=== PATIENT | male | born 1960 | race Caucasian/White ===

== ENCOUNTER 2016-08-08 07:37 | Emergency (ER) | payer MEDICARE ==
--- NOTE | 2016-08-08 08:13 | EDM.PDOC ---
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 The patient states that he always has hard stools and that is nothing new and he has in the past seen some blood in his stools but it has not been consistent. This morning he had a bowel movement and saw blood with it and then had some more bright red blood in the toilet bowl but he has not been needing to use a pad due to dripping of blood or leaking of blood. He states he has pain in the perirectal area and also tells me he has a history of prostate issues for which she is being followed for. He denies any abdominal pain vomiting fevers chills chest pain or shortness of breath. I am familiar with this patient as I saw him back in December 2014 when he presented with abdominal and rectal pain at that time for which I worked him up and he also had presented with delusional statements and was transferred to [facility] and my not. He states that he was evaluated there and was told that this was his baseline and on my evaluation here today he does make several odd statements but it appears that this is his baseline and he is not actively suicidal or confrontational. He states that he follows with Dr. Abundio Perez at [facility] and he has never had issues with rectal bleeding before hence is concerned. Review of systems: As per history of present illness and below otherwise all systems reviewed and negative. Past medical history: As per history of present illness and as reviewed below otherwise noncontributory. Surgical history: As per history of present illness and as reviewed below otherwise noncontributory. Social history: No reported history of drug or alcohol abuse. Family history: As per history of present illness and as reviewed below otherwise noncontributory. Physical exam: Gen.: Well-developed well-nourished man who is nontoxic and interactive with me and cooperative. Vital signs reviewed. Patient is speaking clearly and easily and has no smell of alcohol on his breath HEENT: Atraumatic, normocephalic, pupils reactive, negative for conjunctival pallor or scleral icterus, mucous membranes moist, throat clear, neck supple, nontender, trachea midline. Lungs: Clear to auscultation, breath sounds equal bilaterally, chest nontender. Heart: S1S2, regular rate and rhythm no murmurs Abdomen: Soft, nondistended, nontender. Negative for masses or hepatosplenomegaly. Negative for costovertebral tenderness. Pelvis: Stable nontender. Genitourinary: Deferred. Rectal: tone is normal and there are no overt masses appreciated on digital exam. There are several small external hemorrhoids which are soft and mildly tender on palpation. There is brown stool in the vault which is Hemoccult positive. There was no fullness appreciated and no tenderness on digital exam Extremities: Atraumatic, with chronic visible contracture of the right upper extremity and bilateral AKA's. Neurovascular unremarkable. Neuro: Awake, alert, oriented. Cranial nerves II through XII unremarkable. Cerebellum unremarkable. Motor and sensory unremarkable throughout. Exam nonfocal. Diagnostics: CBC CMP Therapeutics: I discussed with the patient that if his blood tests were normal in light of his presentation and his exam that he would need to follow-up with his provider and potentially have a colonoscopy for further evaluation. He states understanding of this. Impression: Rectal bleeding stable Definitive disposition and diagnosis as appropriate pending reevaluation and review of above. Rectal Pain Score (Numeric/FACES): 7 - Related Data Allergies Allergy/AdvReac Type Severity Reaction Status Date / Time No Known Allergies Allergy Verified 08/08/16 07:49 Home Meds: Home Meds Tamsulosin [Flomax] 0.4 mg PO DAILY 07/16/13 [History] Levothyroxine 08/08/16 [History] Past Medical History - Past Health History Medical/Surgical History: Denies Medical/Surgical History Genitourinary History: Reports: Prostate Disorder Neurological History: Reports: CVA Endocrine/Metabolic History: Reports: Hypothyroidism - Past Surgical History Other Musculoskeletal Surgeries/Procedures:: BILATERAL BKA Social & Family History - Family History Family Medical History: Noncontributory - Tobacco Use Smoking Status *Q: Current Every Day Smoker Years of Tobacco use: 35 Packs/Tins Daily: 1 Used Tobacco, but Quit: No Second Hand Smoke Exposure: No - Caffeine Use Caffeine Use: Reports: None - Alcohol Use Days Per Week of Alcohol Use: 7 Number of Drinks Per Day: 10 Total Drinks Per Week: 70 - Recreational Drug Use Recreational Drug Use: Yes Drug Use in Last 12 Months: Yes Recreational Drug Type: Reports: Marijuana/Hashish Recreational Drug Use Frequency: Binges ED ROS GENERAL - Review of Systems Review Of Systems: ROS reveals no pertinent complaints other than HPI. ED EXAM, GENERAL - Physical Exam Exam: See Below (See dictation) Course - Vital Signs Last Recorded V/S: Last Vital Signs Temp 36.6 C 08/08/16 07:47 Pulse 95 08/08/16 07:47 Resp 16 08/08/16 07:47 BP 141/89 H 08/08/16 07:47 Pulse Ox 96 08/08/16 07:47 - Orders/Labs/Meds Orders: Active Orders 24 hr Category Date Time Status Fecal Occult Blood Collection [RC] ASDIRECTED Care 08/08/16 08:07 Active Labs: Laboratory Tests 08/08/16 08/08/16 Range/Units 08:07 08:23 WBC 6.15 (4.0-11.0) K/uL RBC 4.34 L (4.50-5.90) M/uL Hgb 16.1 (13.0-17.0) g/dL Hct 45.4 (38.0-50.0) % MCV 104.6 H (80.0-98.0) fL MCH 37.1 H (27.0-32.0) pg MCHC 35.5 (31.0-37.0) g/dL RDW Std Deviation 55.1 (28.0-62.0) fl RDW Coeff of Jignesh 15 (11.0-15.0) % Plt Count 181 (150-400) K/uL MPV 9.90 (7.40-12.00) fL Neut % (Auto) 65.7 (48.0-80.0) % Lymph % (Auto) 19.8 (16.0-40.0) % [place] % (Auto) 10.4 (0.0-15.0) % Eos % (Auto) 3.1 (0.0-7.0) % Baso % (Auto) 1.0 (0.0-1.5) % Neut # (Auto) 4.0 (1.4-5.7) K/uL Lymph # (Auto) 1.2 (0.6-2.4) K/uL [place] # (Auto) 0.6 (0.0-0.8) K/uL Eos # (Auto) 0.2 (0.0-0.7) K/uL Baso # (Auto) 0.1 (0.0-0.1) K/uL Nucleated RBC % 0.0 /100WBC Nucleated RBCs # 0 K/uL Sodium 137 (136-146) mmol/L Potassium 4.4 (3.5-5.1) mmol/L Chloride 103 (98-110) mmol/L Carbon Dioxide 21 (21-31) mmol/L BUN 6 (6.0-23.0) mg/dL Creatinine 0.7 (0.6-1.5) mg/dL Est Cr Clr Drug Dosing 83.33 mL/min Estimated GFR (MDRD) > 60.0 ml/min Glucose 82 (60-110) mg/dL Calcium 8.6 L (8.8-10.8) mg/dL Total Bilirubin 0.9 (0.1-1.5) mg/dL AST 58 H (5-40) IU/L ALT 33 (8-54) IU/L Alkaline Phosphatase 113 (40-150) Total Protein 6.8 (6.0-8.0) g/dL Albumin 3.9 (3.5-5.0) g/dL Globulin 2.9 (2.0-3.5) g/dL Albumin/Globulin Ratio 1.3 (1.3-2.8) Departure - Departure Time of Disposition: 09:21 Disposition: Home, Self-Care 01 Condition: Good Clinical Impression: Rectal bleeding - Discharge Information Referrals: Abundio Valle MD [Primary Care Provider] - Forms: ED Department Discharge Additional Instructions: The following information is given to patients seen in the emergency department who are being discharged to home. This information is to outline your options for follow-up care. We provide all patients seen in our emergency department with a follow-up referral. The need for follow-up, as well as the timing and circumstances, are variable depending upon the specifics of your emergency department visit. If you don't have a primary care physician on staff, we will provide you with a referral. We always advise you to contact your personal physician following an emergency department visit to inform them of the circumstance of the visit and for follow-up with them and/or the need for any referrals to a consulting specialist. The emergency department will also refer you to a specialist when appropriate. This referral assures that you have the opportunity for followup care with a specialist. All of these measure are taken in an effort to provide you with optimal care, which includes your followup. Under all circumstances we always encourage you to contact your private physician who remains a resource for coordinating your care. When calling for followup care, please make the office aware that this follow-up is from your recent emergency room visit. If for any reason you are refused follow-up, please contact the [facility] emergency department at and ask to speak to the emergency department charge nurse. [address] [place] [address] [facility] [address] [place] [id number] Abundio Valle for follow-up appointment in the clinic as we discussed and he may also contact one of our surgery doctors to schedule an outpatient colonoscopy if you choose or discuss this with Dr. Valle. Try to increase fiber in your diet and take another fiber supplement other than the center you are currently taking. Return to ER as needed as discussed - My Orders Last 24 Hours: My Active Orders 08/08/16 08:07 Fecal Occult Blood Collection [RC] ASDIRECTED - Assessment/Plan Last 24 Hours: My Active Orders 08/08/16 08:07 Fecal Occult Blood Collection [RC] ASDIRECTED
[2016-08-08 09:03] LABS: CHLORIDE,CL 103 mmol/L (98-110); SODIUM,NA 137 mmol/L (136-146)
[2016-08-08 13:51] VITALS: BP 142/86
== END 2016-08-08 09:38 | disposition home or self-care (01) ==
LOC: MW.ED 07:37
DX: K62.5 Hemorrhage of anus and rectum (principal); E03.9 Hypothyroidism, unspecified; Z86.73 Personal history of transient ischemic attack (TIA), and cerebral infarction without residual deficits; F17.210 Nicotine dependence, cigarettes, uncomplicated; Z89.512 Acquired absence of left leg below knee; Z89.511 Acquired absence of right leg below knee; Z79.899 Other long term (current) drug therapy
CPT/HCPCS: 36415; 80053; 85025; 99282; 99283

== ENCOUNTER 2017-01-15 11:45 | Emergency (ER) | payer MEDICARE ==
[2017-01-15] MEDS ORDERED: Sodium Chloride 0.9% 1,000 ML IV ONE (11:49)
--- NOTE | 2017-01-15 11:51 | EDM.PDOC ---
ED HPI GENERAL MEDICAL PROBLEM - General Stated Complaint: STOMACH PAIN Time Seen by Provider: 01/15/17 11:46 - History of Present Illness INITIAL COMMENTS - FREE TEXT/NARRATIVE: HISTORY AND PHYSICAL: History of present illness: Patient 36-year-old male presents with concern of multiple vague complaints including abdominal pain and headache he is a bilateral AKA and presents here via ambulance there's been no reported fever chills nausea vomiting diarrhea or other complaints Review of systems: As per history of present illness and below otherwise all systems reviewed and negative. Past medical history: As per history of present illness and as reviewed below otherwise noncontributory. Surgical history: As per history of present illness and as reviewed below otherwise noncontributory. Social history: No reported history of drug or alcohol abuse. Family history: As per history of present illness and as reviewed below otherwise noncontributory. Physical exam: HEENT: Atraumatic, normocephalic, pupils reactive, negative for conjunctival pallor or scleral icterus, mucous membranes moist, throat clear, neck supple, nontender, trachea midline. Lungs: Clear to auscultation, breath sounds equal bilaterally, chest nontender. Heart: S1S2, regular, negative for clicks, rubs, or JVD. Abdomen: Soft, nondistended, nontender. Negative for masses or hepatosplenomegaly. Negative for costovertebral tenderness. Pelvis: Stable nontender. Genitourinary: Deferred. Rectal: Deferred. Extremities: Bilateral AKA noted Neuro: Awake, alert, oriented. Cranial nerves II through XII unremarkable. Cerebellum unremarkable. Motor and sensory unremarkable throughout. Exam nonfocal. Diagnostics: CBC CMP amylase lipase UA chest x-ray EKG acute abdominal series Therapeutics: Saline 1 L bolus Impression: #1 abdominal pain #2 cephalgia Definitive disposition and diagnosis as appropriate pending reevaluation and review of above. Abdominal Pain Score (Numeric/FACES): 4 - Related Data Allergies Allergy/AdvReac Type Severity Reaction Status Date / Time aluminum Allergy Chest Pain Verified 01/15/17 13:17 Home Meds: Home Meds . [No Known Home Meds] 01/15/17 [History] Past Medical History - Past Health History Medical/Surgical History: Denies Medical/Surgical History Genitourinary History: Reports: Prostate Disorder Neurological History: Reports: CVA Endocrine/Metabolic History: Reports: Hypothyroidism - Past Surgical History Other Musculoskeletal Surgeries/Procedures:: BILATERAL BKA Social & Family History - Family History Family Medical History: Noncontributory - Tobacco Use Smoking Status *Q: Current Every Day Smoker Years of Tobacco use: 35 Packs/Tins Daily: 1 Used Tobacco, but Quit: No Second Hand Smoke Exposure: No - Caffeine Use Caffeine Use: Reports: None - Alcohol Use Days Per Week of Alcohol Use: 7 Number of Drinks Per Day: 10 Total Drinks Per Week: 70 - Recreational Drug Use Recreational Drug Use: Yes Drug Use in Last 12 Months: Yes Recreational Drug Type: Reports: Marijuana/Hashish Recreational Drug Use Frequency: Binges ED ROS GENERAL - Review of Systems Review Of Systems: ROS reveals no pertinent complaints other than HPI. ED EXAM, GENERAL - Physical Exam Exam: See Below (See dictation) Course - Vital Signs Last Recorded V/S: Last Vital Signs Temp 36.6 C 01/15/17 13:18 Pulse 74 01/15/17 13:18 Resp 16 01/15/17 13:18 BP 103/62 01/15/17 13:18 Pulse Ox 94 L 01/15/17 13:18 - Orders/Labs/Meds Orders: Active Orders 24 hr Category Date Time Status EKG Documentation Completion [RC] STAT Care 01/15/17 11:48 Active Pulse Oximetry [RC] ASDIRECTED Care 01/15/17 11:48 Active Abdomen 2V AP Flat Upright [CR] Stat Exams 01/15/17 11:49 Taken Chest 1V Frontal [CR] Stat Exams 01/15/17 11:49 Taken UA W/MICROSCOPIC [URIN] Stat Lab 01/15/17 11:51 Uncollected Labs: Laboratory Tests 01/15/17 01/15/17 Range/Units 12:15 12:15 WBC 8.00 (4.0-11.0) K/uL RBC 4.12 L (4.50-5.90) M/uL Hgb 16.4 (13.0-17.0) g/dL Hct 45.1 (38.0-50.0) % MCV 109.5 H (80.0-98.0) fL MCH 39.8 H (27.0-32.0) pg MCHC 36.4 (31.0-37.0) g/dL RDW Std Deviation 58.4 (28.0-62.0) fl RDW Coeff of Jignesh 15 (11.0-15.0) % Plt Count 189 (150-400) K/uL MPV 10.50 (7.40-12.00) fL Neut % (Auto) 67.6 (48.0-80.0) % Lymph % (Auto) 22.5 (16.0-40.0) % [place] % (Auto) 8.5 (0.0-15.0) % Eos % (Auto) 0.8 (0.0-7.0) % Baso % (Auto) 0.6 (0.0-1.5) % Neut # (Auto) 5.4 (1.4-5.7) K/uL Lymph # (Auto) 1.8 (0.6-2.4) K/uL [place] # (Auto) 0.7 (0.0-0.8) K/uL Eos # (Auto) 0.1 (0.0-0.7) K/uL Baso # (Auto) 0.1 (0.0-0.1) K/uL Nucleated RBC % 0.0 /100WBC Nucleated RBCs # 0 K/uL Sodium 135 L (136-146) mmol/L Potassium 2.9 L (3.5-5.1) mmol/L Chloride 99 (98-110) mmol/L Carbon Dioxide 20 L (21-31) mmol/L BUN 7 (6.0-23.0) mg/dL Creatinine 0.7 (0.6-1.5) mg/dL Est Cr Clr Drug Dosing TNP Estimated GFR (MDRD) > 60.0 ml/min Glucose 89 (60-110) mg/dL Calcium 9.4 (8.8-10.8) mg/dL Total Bilirubin 1.0 (0.1-1.5) mg/dL AST 55 H (5-40) IU/L ALT 32 (8-54) IU/L Alkaline Phosphatase 157 H (40-150) Total Protein 7.0 (6.0-8.0) g/dL Albumin 3.8 (3.5-5.0) g/dL Globulin 3.2 (2.0-3.5) g/dL Albumin/Globulin Ratio 1.2 L (1.3-2.8) Amylase 23 (10-90) U/L Lipase 26 (7-80) U/L Meds: Medications Discontinued Medications Generic Name Dose Route Start Last Admin Trade Name Julia PRN Reason Stop Dose Admin Sodium Chloride 1,000 mls @ 999 mls/hr 01/15/17 11:49 01/15/17 12:22 Normal Saline IV 01/15/17 12:49 999 mls/hr STAT ONE Administration Potassium Bicarbonate 50 meq 01/16/17 13:05 Klor-Con Ef PO 01/16/17 13:06 DAILY ONE Potassium Bicarbonate 50 meq 01/15/17 13:05 01/15/17 13:29 Klor-Con Ef PO 01/15/17 13:06 50 meq DAILY ONE Administration Departure - Departure Time of Disposition: 13:29 Disposition: Home, Self-Care 01 Condition: Good Clinical Impression: Abdominal pain, Cephalgia, Hypokalemia - Discharge Information Referrals: PCP,Unknown [Primary Care Provider] - Additional Instructions: The following information is given to patients seen in the emergency department who are being discharged to home. This information is to outline your options for follow-up care. We provide all patients seen in our emergency department with a follow-up referral. The need for follow-up, as well as the timing and circumstances, are variable depending upon the specifics of your emergency department visit. If you don't have a primary care physician on staff, we will provide you with a referral. We always advise you to contact your personal physician following an emergency department visit to inform them of the circumstance of the visit and for follow-up with them and/or the need for any referrals to a consulting specialist. The emergency department will also refer you to a specialist when appropriate. This referral assures that you have the opportunity for followup care with a specialist. All of these measure are taken in an effort to provide you with optimal care, which includes your followup. Under all circumstances we always encourage you to contact your private physician who remains a resource for coordinating your care. When calling for followup care, please make the office aware that this follow-up is from your recent emergency room visit. If for any reason you are refused follow-up, please contact the [facility] emergency department at and asked to speak to the emergency department charge nurse. [facility] [address] [place] [address] [place] [address] [facility] Professional Building [address] [place] [address], [address] [place] [address] K-Dur as prescribed call schedule routine appointment with primary medical doctor and/or clinic in general surgery above return as needed as discussed - My Orders Last 24 Hours: My Active Orders 01/15/17 11:48 EKG Documentation Completion [RC] STAT Pulse Oximetry [RC] ASDIRECTED 01/15/17 11:49 Abdomen 2V AP Flat Upright [CR] Stat Chest 1V Frontal [CR] Stat 01/15/17 11:51 UA W/MICROSCOPIC [URIN] Stat - Assessment/Plan Last 24 Hours: My Active Orders 01/15/17 11:48 EKG Documentation Completion [RC] STAT Pulse Oximetry [RC] ASDIRECTED 01/15/17 11:49 Abdomen 2V AP Flat Upright [CR] Stat Chest 1V Frontal [CR] Stat 01/15/17 11:51 UA W/MICROSCOPIC [URIN] Stat
[2017-01-15 12:52] LABS: CHLORIDE,CL 99 mmol/L (98-110); SODIUM,NA 135 mmol/L (136-146)
[2017-01-15] MEDS ORDERED: Potassium Bicarbonate 25 MEQ Tab.EFF PO ONE (13:05)
[2017-01-15 14:13] VITALS: BP 135/96
[2017-01-16] MEDS ORDERED: Potassium Bicarbonate 25 MEQ Tab.EFF PO ONE (13:05)
--- NOTE | 2017-01-16 13:19 | CR ---
EXAM DATE: 01/15/17 PATIENT'S AGE: 56 Patient: EMERITA ARDON Facility: [place], [place] Site . Site : 1960 Study: XRay Chest [id number] 1:00:01 PM Ordering Physician: Johann Gonzales Final Report: INDICATION: Pain. Short of breath. Technique: AP chest. Findings: Heart and mediastinum are normal in size. Pulmonary vessels are normal. Lungs are clear. No pleural fluid. No acute bony abnormality. Impression: No acute chest disease. Dictated by Vazquez Greene MD @ Jan 15 2017 1:10PM (Electronic Signature) Report Signed by Proxy. [facility]
--- NOTE | 2017-01-16 13:20 | CR ---
EXAM DATE: 01/15/17 PATIENT'S AGE: 56 Patient: EMERITA ARDON Facility: [place], [place] Site . Site : 1960 Study: XRay Abdomen [id number] 1:00:38 PM Ordering Physician: Johann Gonzales Final Report: INDICATION: Abdominal pain. Technique: Flat and upright abdomen. Findings: No free intraperitoneal air. Nonobstructive bowel gas pattern. No calcifications overlying the kidneys, pancreas, or hepatobiliary system. No mass or organomegaly. No acute bony abnormality. Impression: No bowel perforation or obstruction. Dictated by Vazquez Greene MD @ Jan 15 2017 1:11PM (Electronic Signature) Report Signed by Proxy. LE
== END 2017-01-15 14:04 | disposition home or self-care (01) ==
LOC: MW.ED 11:45
DX: R10.9 Unspecified abdominal pain (principal); R51 Headache; E87.6 Hypokalemia; E03.9 Hypothyroidism, unspecified; F17.210 Nicotine dependence, cigarettes, uncomplicated; Z91.048 Other nonmedicinal substance allergy status
CPT/HCPCS: 36415; 71010; 74020; 80053; 82150; 83690; 85025; 93005; 96360; 99284; A9270; J7040; 99283

== ENCOUNTER 2017-05-01 12:07 | Emergency (ER) | payer MEDICARE ==
--- NOTE | 2017-05-01 12:33 | EDM.PDOC ---
ED HPI GENERAL MEDICAL PROBLEM - General Stated Complaint: HEARING VOICES Time Seen by Provider: 05/01/17 12:11 Source of Information: Reports: Patient History Limitations: Reports: No Limitations - History of Present Illness INITIAL COMMENTS - FREE TEXT/NARRATIVE: History of present illness: []Patient has a voice in his head that told him he needed a urinary catheter because he could not urinate. He came in by ambulance screaming that he needed to urinate but was unable to. Review of systems: As per history of present illness and below otherwise all systems reviewed and negative. Past medical history: As per history of present illness and as reviewed below otherwise noncontributory. Surgical history: As per history of present illness and as reviewed below otherwise noncontributory. Social history: No reported history of drug or alcohol abuse. Family history: As per history of present illness and as reviewed below otherwise noncontributory. Physical exam: General: Well developed, well nourished in NAD HEENT: Atraumatic, normocephalic, pupils reactive, negative for conjunctival pallor or scleral icterus, mucous membranes moist, throat clear, neck supple, nontender, trachea midline. Lungs: Clear to auscultation, breath sounds equal bilaterally, chest nontender. Heart: S1S2, regular, negative for clicks, rubs, or JVD. Abdomen: Soft, nondistended, nontender. Negative for masses or hepatosplenomegaly. Negative for costovertebral tenderness. Pelvis: Stable nontender. Genitourinary: Deferred. Rectal: Deferred. Extremities: Atraumatic, negative for cords or calf pain. Neurovascular unremarkable. Neuro: Awake, alert, oriented. Cranial nerves II through XII unremarkable. Cerebellum unremarkable. Motor and sensory unremarkable throughout. Exam nonfocal. 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 - Related Data Allergies Allergy/AdvReac Type Severity Reaction Status Date / Time aluminum Allergy Chest Pain Verified 01/15/17 13:17 Home Meds: Home Meds . [No Known Home Meds] 01/15/17 [History] Past Medical History - Past Health History Medical/Surgical History: Denies Medical/Surgical History Genitourinary History: Reports: Prostate Disorder Neurological History: Reports: CVA Endocrine/Metabolic History: Reports: Hypothyroidism - Past Surgical History Other Musculoskeletal Surgeries/Procedures:: BILATERAL BKA Social & Family History - Family History Family Medical History: Noncontributory - Tobacco Use Smoking Status *Q: Current Every Day Smoker Years of Tobacco use: 35 Packs/Tins Daily: 1 Used Tobacco, but Quit: No Second Hand Smoke Exposure: No - Caffeine Use Caffeine Use: Reports: None - Alcohol Use Days Per Week of Alcohol Use: 7 Number of Drinks Per Day: 10 Total Drinks Per Week: 70 - Recreational Drug Use Recreational Drug Use: Yes Drug Use in Last 12 Months: Yes Recreational Drug Type: Reports: Marijuana/Hashish Recreational Drug Use Frequency: Binges ED ROS GENERAL - Review of Systems Review Of Systems: See Below (The history of present illness) ED EXAM, GENERAL - Physical Exam Exam: See Below (History of present illness) Course - Orders/Labs/Meds Orders: Active Orders 24 hr Category Date Time Status Communication Order [RC] STAT Care 05/01/17 13:34 Active Mancini Catheter Insertion [Insert Urinary Catheter] [OM. Care 05/01/17 12:30 Ordered PC] Q24H Urinary Catheter Assessment [RC] ASDIRECTED Care 05/01/17 12:23 Active Labs: Laboratory Tests 05/01/17 Range/Units 12:57 Urine Color YELLOW Urine Appearance CLEAR Urine pH 5.5 (5.0-8.0) Ur Specific Mcfall <= 1.005 (1.001-1.035) Urine Protein NEGATIVE (NEGATIVE) mg/dL Urine Glucose (UA) NEGATIVE (NEGATIVE) mg/dL Urine Ketones NEGATIVE (NEGATIVE) mg/dL Urine Occult Blood NEGATIVE (NEGATIVE) Urine Nitrite NEGATIVE (NEGATIVE) Urine Bilirubin NEGATIVE (NEGATIVE) Urine Urobilinogen 0.2 (<2.0) EU/dL Ur Leukocyte Esterase NEGATIVE (NEGATIVE) Urine RBC NONE SEEN (0-2/HPF) Urine WBC 0-1 (0-5/HPF) Ur Epithelial Cells RARE (NONE-FEW) Urine Bacteria RARE (NEGATIVE) Departure - Departure Time of Disposition: 13:33 Disposition: Home, Self-Care 01 Condition: Good Clinical Impression: Urinary retention - Discharge Information Additional Instructions: The following information is given to patients seen in the emergency department who are being discharged to home. This information is to outline your options for follow-up care. We provide all patients seen in our emergency department with a follow-up referral. The need for follow-up, as well as the timing and circumstances, are variable depending upon the specifics of your emergency department visit. If you don't have a primary care physician on staff, we will provide you with a referral. We always advise you to contact your personal physician following an emergency department visit to inform them of the circumstance of the visit and for follow-up with them and/or the need for any referrals to a consulting specialist. The emergency department will also refer you to a specialist when appropriate. This referral assures that you have the opportunity for follow-up care with a specialist. All of these measure are taken in an effort to provide you with optimal care, which includes your follow-up. Under all circumstances we always encourage you to contact your private physician who remains a resource for coordinating your care. When calling for follow-up care, please make the office aware that this follow-up is from your recent emergency room visit. If for any reason you are refused follow-up, please contact the [facility] Emergency Department at and asked to speak to the emergency department charge nurse. [facility] [address] [place] [address] - My Orders Last 24 Hours: My Active Orders 05/01/17 12:23 Urinary Catheter Assessment [RC] ASDIRECTED 05/01/17 12:30 Mancini Catheter Insertion [Insert Urinary Catheter] [OM.PC] Q24H 05/01/17 13:34 Communication Order [RC] STAT - Assessment/Plan Last 24 Hours: My Active Orders 05/01/17 12:23 Urinary Catheter Assessment [RC] ASDIRECTED 05/01/17 12:30 Mancini Catheter Insertion [Insert Urinary Catheter] [OM.PC] Q24H 05/01/17 13:34 Communication Order [RC] STAT
[2017-05-01 15:51] VITALS: BP 150/87
== END 2017-05-01 14:21 | disposition home or self-care (01) ==
LOC: MW.ED 12:07
DX: R33.9 Retention of urine, unspecified (principal); F22 Delusional disorders; F17.210 Nicotine dependence, cigarettes, uncomplicated; E03.9 Hypothyroidism, unspecified; Z91.09 Other allergy status, other than to drugs and biological substances
CPT/HCPCS: 51702; 81001; 99283; 99284